=== PATIENT | female | born 1990 | race American Indian/Alaskan Native ===

== ENCOUNTER 2017-08-01 19:05 | Emergency (ER) | payer MEDICAID ==
[2017-08-01 19:40] LABS: Basophils % (Auto) 0.5 % (0.0-1.8); Eosinophils % (Auto) 3.6 % (0.0-4.3); Hematocrit 39.8 % (30.3-42.9); Hemoglobin 12.8 gm/dl (10.1-14.3); Mean Corpuscular HGB Conc 32 % (30-34); Mean Corpuscular Hemoglobin 28 pg (28-32); Mean Corpuscular Volume 85 fl (79-97); Platelet Count 222 K/mm3 (140-440); Red Blood Count 4.65 M/mm3 (3.65-5.03); Red Cell Distribution Width 13.4 % (13.2-15.2); White Blood Count 4.7 K/mm3 (4.5-11.0)
[2017-08-01 19:58] LABS: Anion Gap 16 mmol/L; BUN/Creatinine Ratio 17; Blood Urea Nitrogen 10 mg/dL (7-17); Calcium 8.9 mg/dL (8.4-10.2); Carbon Dioxide 25 mmol/L (22-30); Glucose 95 mg/dL (65-100); Potassium 3.3 mmol/L (3.6-5.0); Sodium 142 mmol/L (137-145)
[2017-08-01 21:10] LABS: Bilirubin,Urine NEG (Negative); Blood,Urine SM (Negative); Ketones,Urine NEG (Negative); Leukocyte Esterase,Urine TR (Negative); Mucus,Urine 3+ /HPF; Nitrite,Urine NEG (Negative)
[2017-08-02] MEDS ORDERED: K-DUR PO ONE (01:24)
--- NOTE | 2017-08-02 01:44 | Emergency Department Report ---
HPI - General Chief Complaint: Nausea/Vomiting/Diarrhea Time Seen by Provider: 08/02/17 01:22 - HPI HPI: This is a 18-year-old -[place] female presents to the emergency department, along with her son and daughter, with a complaint of a 24-hour history of nausea and vomiting. She had some abdominal and/or back pain earlier today, that she says is most likely from the vomiting, but all of the symptoms have since resolved and the last time that she had vomiting was about 9 this morning. Her son and daughter both are here with similar symptoms. She denies any fever. She denies any significant past medical history but has a psychiatric and/or social history of anxiety, PTSD. She says that she has a primary care physician but has not seen him regarding symptoms. No recent travel or sick contacts at home. She did not take anything for her symptoms prior to presentation. ED Past Medical Hx - Past Medical History Previous Medical History?: No Additional medical history: anxiety - Surgical History Past Surgical History?: No - Social History Smoking Status: Current Every Day Smoker Substance Use Type: Alcohol - Medications Home Medications: Home Medications Medication Instructions Recorded Confirmed Last Taken Type Ondansetron [Zofran Odt] 4 mg PO Q8H PRN #10 tab.rapdis 08/02/17 Unknown Rx ED Review of Systems ROS: Stated complaint: VOMITING Other details as noted in HPI Comment: All other systems reviewed and negative Constitutional: denies: chills, fever Eyes: denies: eye pain, eye discharge, vision change ENT: denies: ear pain, throat pain Respiratory: denies: cough, shortness of breath, wheezing Cardiovascular: denies: chest pain, palpitations Gastrointestinal: abdominal pain, nausea, vomiting Genitourinary: denies: urgency, dysuria, discharge Musculoskeletal: denies: back pain, joint swelling, arthralgia Skin: denies: rash, lesions Neurological: denies: headache, weakness, paresthesias Physical Exam - Physical Exam Vital Signs: Vital Signs 08/01/17 08/02/17 19:19 00:25 Temperature 98.2 F 98.0 F Pulse Rate 85 78 Respiratory 16 18 Rate Blood Pressure 119/68 147/83 O2 Sat by Pulse 98 99 Oximetry Physical Exam: GENERAL: The patient is well-developed well-nourished. HENT: Normocephalic. Atraumatic. Patient has moist mucous membranes. EYES: Extraocular motions are intact. Pupils equal reactive to light bilaterally. NECK: Supple. Trachea is midline. CHEST/LUNGS: Clear to auscultation. There is no respiratory distress noted. HEART/CARDIOVASCULAR: Regular. There is no tachycardia. There is no murmur. ABDOMEN: Abdomen is soft, nontender. Patient has normal bowel sounds. There is no abdominal distention. SKIN: Skin is warm and dry. NEURO: The patient is awake, alert, and oriented. The patient is cooperative. The patient has no focal neurologic deficits. The patient has normal speech. MUSCULOSKELETAL: There is no tenderness or deformity. There is no evidence of acute injury. ED Course Vital Signs 08/01/17 08/02/17 19:19 00:25 Temperature 98.2 F 98.0 F Pulse Rate 85 78 Respiratory 16 18 Rate Blood Pressure 119/68 147/83 O2 Sat by Pulse 98 99 Oximetry ED Medical Decision Making - Lab Data Result diagrams: 08/01/17 19:29 08/01/17 19:29 - Medical Decision Making The patient has not had any vomiting or symptoms since about 9 AM this morning. Her vital signs of an stable throughout her ED course upon presentation including being afebrile. She is not currently nauseated. She denies any abdominal or back pain and therefore I do not believe any imaging studies are necessary. Labs are mostly unremarkable including no leukocytosis. The patient is not and there is no urinary tract infection. She does have some mild hypokalemia with a potassium of 3.3 that will be replaced with some potassium chloride. She appears safe for discharge home at this time but has been encouraged to increase her oral rehydration. She will be given some Zofran ODT case the nausea and vomiting returns. She has been encouraged to follow up with her PCP in the next few days. - Differential Diagnosis viral syndrome, , colitis, food poisoning Critical Care Time: No Critical care attestation.: If time is entered above; I have spent that time in minutes in the direct care of this critically ill patient, excluding procedure time. ED Disposition Clinical Impression: Viral syndrome, Hypokalemia Nausea and vomiting Qualifiers: Vomiting type: unspecified Vomiting Intractability: non-intractable Qualified Code(s): R11.2 - Nausea with vomiting, unspecified Disposition: DC-01 TO HOME OR SELFCARE Is pt being admited?: No Condition: Stable Instructions: Acute Nausea and Vomiting (ED), Viral Syndrome (ED), Hypokalemia (ED) Additional Instructions: Please increase your oral rehydration. Follow up with your primary care physician in the next few days. Return to the emergency Department with any worsening of your symptoms or any acute distress. Prescriptions: Ondansetron [Zofran Odt] 4 mg PO Q8H PRN #10 tab.rapdis PRN Reason: Nausea Referrals: SABINA DENG PA [Primary Care Provider] - 3-5 Days Forms: Work/School Release Form(ED) Time of Disposition: 01:45
[2017-08-02 02:18] VITALS: BP 134/98
== END 2017-08-02 02:17 | disposition home or self-care (01) ==
LOC: ED 19:05
DX: B34.9 Viral infection, unspecified (principal); E87.6 Hypokalemia; F17.200 Nicotine dependence, unspecified, uncomplicated; F10.10 Alcohol abuse, uncomplicated
CPT/HCPCS: 36415; 80048; 81001; 84703; 85025; 99283